=== PATIENT | female | born 1980 ===

== ENCOUNTER 2019-01-05 19:06 | Inpatient (IN) | payer OTHER ==
[~2019-01-05] VITALS: Ht 162.6 cm; Wt 73.3 kg
[2019-01-05 19:31] LABS: GLUCOSE,POINT OF CARE 116 MG/DL (70-110)
[2019-01-05] MEDS ORDERED: QUET300T2 PO (19:40)
[2019-01-05 20:06] LABS: BASOPHILS % (AUTO) 0.8 % (0.0-2.0); EOSINOPHILS % (AUTO) 3.9 % (1.0-6.0); HEMATOCRIT 41.8 % (36-46); LYMPHOCYTES # (AUTO) 2.2 K/uL (1.0-4.8); LYMPHOCYTES % (AUTO) 19.6 % (22.0-44.0); MEAN CORPUSCULAR HGB CONC 33.5 G/dL (31.0-37.0); MEAN CORPUSCULAR VOLUME 96 fL (80-100); MONOCYTES # (AUTO) 0.5 K/uL (0.1-1.0); NEUTROPHILS # (AUTO) 7.8 K/uL (1.8-7.7); NEUTROPHILS % (AUTO) 70.7 % (40.0-70.0); PLATELET COUNT (AUTO) 278 K/uL (150-450); RED BLOOD CELL COUNT(AUTO) 4.38 MIL/uL (4.00-5.20)
[2019-01-05 20:43] LABS: ANION GAP 11 mmol/L (8-16); CALCIUM, TOTAL 8.5 mg/dL (8.8-10.5); CARBON DIOXIDE 24 mmol/L (22-29); CHLORIDE 104 mmol/L (98-107); CREATININE 0.88 mg/dL (0.60-1.30); GLOMERULAR FILTR. RATE CALC 56 mL/min (>60); GLUCOSE,RANDOM 100 mg/dL (70-110); POTASSIUM 3.5 mmol/L (3.5-5.1); SODIUM SERUM 139 mmol/L (136-145); UREA NITROGEN, BLOOD 7 mg/dL (7-18)
[2019-01-05 20:54] LABS: ALANINE AMINOTRANSFERASE 14 U/L (12-78); ALBUMIN 3.9 g/dL (3.4-5.0); ALKALINE PHOSPHATASE 53 U/L (46-116); ASPARTATE AMINOTRANSFERASE 13 U/L (15-37); BILIRUBIN,TOTAL 0.2 mg/dL (0.1-1.0); HCG,QUANTITATIVE < 1 mIU/mL (0-6); TOTAL PROTEIN, SERUM 7.4 g/dL (6.4-8.2)
[2019-01-05 21:09] LABS: CREATINE KINASE, TOTAL ONLY 59 U/L (26-192)
[2019-01-05 21:33] LABS: APPEARANCE,URINE CLEAR (CLEAR); BILIRUBIN,URINE NEGATIVE (NEGATIVE); GLUCOSE, URINE (UA) NEGATIVE (NEGATIVE); KETONES,URINE NEGATIVE (NEGATIVE); LEUKOCYTE ESTERASE ,URINE NEGATIVE (NEGATIVE); NITRATE,URINE NEGATIVE (NEGATIVE); OCCULT BLOOD,URINE TRACE (NEGATIVE); PH,URINE 6.5 (5.0-8.0); PROTEIN,URINE NEGATIVE (NEGATIVE); UROBILINOGEN,URINE 0.2 mg/dL (<=1.0)
[2019-01-05 21:38] LABS: LACTIC ACID 2.1 mmol/L (0.4-2.0)
[2019-01-05 21:42] LABS: BACTERIA,URINE None Seen /HPF (None Seen); RBC,URINE 0-2 /HPF (0-2); SQUAMOUS EPITHELIAL CELL,UR Rare /LPF (None Seen); WBC,URINE None Seen /HPF (0-5)
[2019-01-05 21:43] LABS: AMPHET/METH SCREEN,URINE NEGATIVE (NEGATIVE); BARBITURATE SCREEN, URINE NEGATIVE (NEGATIVE); BENZODIAZEPINES SCREEN,URINE NEGATIVE (NEGATIVE); CANNABINOID SCREEN,URINE POSITIVE (NEGATIVE); COCAINE SCREEN,URINE NEGATIVE (NEGATIVE); METHADONE SCREEN, URINE NEGATIVE (NEGATIVE); OPIATE SCREEN,URINE NEGATIVE (NEGATIVE)
[2019-01-05 21:49] LABS: PHENCYCLIDINE SCREEN,URINE NEGATIVE (NEGATIVE)
[2019-01-05 21:53] LABS: ACETAMINOPHEN < 2 mcg/mL (10-30)
[2019-01-05] MEDS ORDERED: ZOLPIDEM TARTRATE 10 MG TABLET PO PRN (23:45)
[2019-01-05] MEDS ORDERED: SODIUM CHLORIDE 0.9% 1,000 ML IV ONE (23:45)
[2019-01-05] MEDS ORDERED: LORazepam 2 MG TABLET PO PRN (23:45)
[2019-01-05] MEDS ORDERED: OLANZapine 5 MG RAPDIS TABLET PO PRN (23:45)
[2019-01-06] MEDS ORDERED: SODIUM CHLORIDE 0.9% 1,000 ML IV ONE (01:45)
[2019-01-06 05:21] LABS: CHOL/HDL RATIO 4.6 (3.9-5.7)
[2019-01-06] MEDS ORDERED: ALBUTEROL SULFATE HFA 90 MCG/PUFF 8 GM INHALER IH PRN (06:30)
[2019-01-06] MEDS ORDERED: LOPERAMIDE HCL 2 MG CAPSULE PO PRN (06:30)
[2019-01-06] MEDS ORDERED: ONDANSETRON HCL 4 MG TABLET PO PRN (06:30)
[2019-01-06] MEDS ORDERED: MAGNESIUM HYDROXIDE SUSPENSION 30 ML UDCUP PO PRN (06:30)
[2019-01-06] MEDS ORDERED: DOCUSATE SODIUM 100 MG CAPSULE PO PRN (06:30)
[2019-01-06] MEDS ORDERED: PETROLATUM,WHITE 28 GM JELLY TP PRN (06:30)
[2019-01-06] MEDS ORDERED: ACETAMINOPHEN 325 MG TABLET PO PRN (06:30)
[2019-01-06] MEDS ORDERED: CloNIDine HCL 0.1 MG TABLET PO PRN (06:30)
[2019-01-06] MEDS ORDERED: IBUPROFEN 400 MG TABLET PO PRN (06:30)
[2019-01-06] MEDS ORDERED: GuaiFENesin/D-METHORPHAN [SUGAR-FREE] 200-20MG/10 ML SYRUP UDCUP PO PRN (06:30)
[2019-01-06] MEDS ORDERED: MAG HYDROX/AL HYDROX/SIMETH ES 30 ML SUSPENSION UDCUP PO PRN (06:30)
[2019-01-06] MEDS ORDERED: NICOTINE 14 MG/24 HOUR PATCH TD PRN (06:30)
[2019-01-06 10:21] VITALS: BP 132/87
[2019-01-06] MEDS: NICOTINE 21 MG/24 HOUR PATCH TD SCH (14:10)
[2019-01-06] MEDS: LURASIDONE HCL 80 MG TABLET PO SCH (16:28)
[2019-01-06 16:53] VITALS: BP 97/63
[2019-01-06] MEDS: QUEtiapine FUMARATE 100 MG TABLET PO PRN (21:46)
[2019-01-07 06:32] VITALS: BP 106/72
[2019-01-07] MEDS: NICOTINE 21 MG/24 HOUR PATCH TD SCH (08:33)
[2019-01-07 16:54] VITALS: BP 105/73
[2019-01-07] MEDS: LURASIDONE HCL 80 MG TABLET PO SCH (17:35)
[2019-01-07] MEDS: QUEtiapine FUMARATE 100 MG TABLET PO PRN (20:05)
[2019-01-08 09:20] VITALS: BP 116/81
[2019-01-08] MEDS: NICOTINE 21 MG/24 HOUR PATCH TD SCH (10:01)
[2019-01-08] MEDS: LURASIDONE HCL 80 MG TABLET PO SCH (17:33)
[2019-01-08 19:14] VITALS: BP 117/67
[2019-01-09] MEDS ORDERED: LURA80 PO (08:24)
[2019-01-09] MEDS: NICOTINE 21 MG/24 HOUR PATCH TD SCH (09:19)
[2019-01-09 09:42] VITALS: BP 94/69
== END 2019-01-09 10:15 | disposition home or self-care (01) | DRG 885 ==
LOC: EMS 19:08 → EDBD 19:08 → 3EI 01-06 07:44
DX: F31.5 Bipolar disorder, current episode depressed, severe, with psychotic features (principal); F10.20 Alcohol dependence, uncomplicated; K21.9 Gastro-esophageal reflux disease without esophagitis; E78.5 Hyperlipidemia, unspecified
CPT/HCPCS: 70450; 83605; 83735; 93005; 99291; G0480; G0481